=== PATIENT | male | born 2000 | race Two or more races ===

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

== ENCOUNTER 2024-10-17 10:53 | Emergency (ER) | payer MEDICAID ==
[~2024-10-17] VITALS: Ht 172.7 cm; Wt 71.5 kg
[~2024-10-17 10:53] MED LIST changes: -KETOROLAC TROMETH 30 MG/ML 1ML VIAL IM ONE
[2024-10-17] MEDS: FAMOTIDINE 20 MG TAB PO ONE (11:31)
[2024-10-17] MEDS: MAALOX PLUS or MAALOX 30 ML PO ONE (11:31)
[2024-10-17] MEDS: ONDANSETRON ODT 4 MG TAB PO ONE (11:31)
[2024-10-17 11:46] LABS: Hematocrit 45.2 % (41.0-53.0); Hemoglobin 15.9 g/dL (13.5-17.5); Mean Corpuscular Hemoglobin 30.3 pg (28.0-32.0); Mean Corpuscular Hgb Conc. 35.2 g/dL (32.0-36.0); Mean Corpuscular Volume 86.3 fL (80.0-100.0); Platelet Count (auto) 253 10^3/uL (140-450); Red Blood Cells 5.24 10^6/uL (4.5-5.90); White Blood Cell 6.5 10^3/uL (4.4-10.8)
[2024-10-17 11:55] LABS: Basophils % (manual) 0 (0.0-2.0); Blast Cells 0; Eosinophils % (manual) 0 (0-7); Metamyelocytes % 0; Myelocytes % 0; Promyelocytes % 0; Reactive Lymphocytes 0
[2024-10-17 12:03] LABS: Alanine Aminotransferase 27 U/L (7-40); Alkaline Phosphatase 79 U/L (46-116); Anion Gap 7 (5-15); Aspartate Aminotransferase 28 U/L (13-40); BUN/Creatinine Ratio 8.9 (10.0-20.0); Blood Urea Nitrogen 10 mg/dL (9-23); COVID19 ANTIGEN SOFIA FIA NEGATIVE (NEGATIVE); Calcium 9.3 mg/dL (8.7-10.4); Carbon Dioxide 27 mmol/L (20-31); Chloride 105 mmol/L (98-107); Glucose 99 mg/dL (74-106); Magnesium 2.4 mg/dL (1.6-2.6); Potassium 4.1 mmol/L (3.5-5.1); Sodium 139 mmol/L (136-145); Total Protein 7.6 g/dL (5.7-8.2)
[2024-10-17 12:04] LABS: Bilirubin, Total 0.4 mg/dL (0.2-1.0)
[2024-10-17 12:05] LABS: Rapid Influenza A Positive (Negative); Rapid Influenza B Negative (Negative)
[2024-10-17 12:13] LABS: Band Neutrophils % (manual) 3; Monocytes % (manual) 22 (0-12)
[2024-10-17 12:14] LABS: Lymphocytes % (manual) 26 (10.0-50.0); Platelet Estimate Adequate; RBC Morphology Normal
[2024-10-17 12:15] LABS: Albumin 4.9 g/dL (3.2-4.8)
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
[2024-10-17] MEDS ORDERED: OSEL75CA5 PO (12:23)
[2024-10-17] MEDS ORDERED: ONDA-180 PO (12:23)
[2024-10-17 12:42] LABS: Urine Bacteria None Seen /hpf (None Seen)
[2024-10-17 13:00] VITALS: BP 133/75; PULSE 90; RESP 16; TEMP 98; O2SAT 97
[2024-10-17 13:12] LABS: Urine Blood TRACE /uL (Negative); Urine Clarity Clear (Clear); Urine Color Yellow (Yellow); Urine Mucus FEW (None Seen); Urine Protein, UAD TRACE (Negative); Urine Specific Gravity 1.035 (1.001-1.035); Urine Squamous Epithelial Cell FEW /hpf (<5); Urine Urobilinogen Normal (Negative); Urine WBC 1 /HPF (0-3)
[2024-10-17 13:18] LABS: Amphetamine Screen, Urine Neg (NEGATIVE); Barbiturate Scree,Urine Neg (NEGATIVE); Benzodiazephine Screen, Urine Neg (NEGATIVE); Cannabinoid Screen, Urine Neg (NEGATIVE); Cocaine Screen, Urine Neg (NEGATIVE); Opiate Scree,Urine Neg (NEGATIVE); Phencyclidine Screen, Urine Neg (NEGATIVE)
[2024-10-17] MEDS ORDERED: LEVE100012 PO (17:08)
== END 2024-10-17 13:19 | disposition home or self-care (01) ==
LOC: ER 10:53
DX: J10.1 Influenza due to other identified influenza virus with other respiratory manifestations (principal); R50.9 Fever, unspecified; R05.9 Cough, unspecified; R11.2 Nausea with vomiting, unspecified; Z20.822 Contact with and (suspected) exposure to COVID-19
CPT/HCPCS: 36415; 80053; 80307; 80320; 81001; 83735; 85007; 85027; 87426; 87804; 99284; Q0162

== ENCOUNTER 2024-10-17 15:26 | Emergency (ER) | payer MEDICAID ==
[~2024-10-17] VITALS: Ht 172.7 cm; Wt 58.0 kg
[~2024-10-17 15:26] MED LIST changes: +ONDA-180 PO; +OSEL75CA5 PO
[2024-10-17 15:30] VITALS: BP 134/85; O2SAT 97
--- NOTE | 2024-10-17 15:35 | ED.PDOC ---
History of Present Illness HPI Comments 24 year old male with history of frequent breakthrough seizures / seizure disorder now BIBA after witnessed seizure at home. no report of trauma. EMS gave one dose of versed Time Seen by MD: 15:27 Primary Care Provider: HANY BELLA Allergies: Coded Allergies: NO KNOWN ALLERGIES (Unverified , 09/23/21) Home Meds Active Scripts Levetiracetam (Keppra) 1,000 Mg Tab, 1 TAB PO BID for 60 Days, #120 TAB 5 Refills Prov:TAL WINTERS MD 10/17/24 Oseltamivir Phosphate (Tamiflu) 75 Mg Cap, 1 CAP PO BID for 5 Days, #10 CAP Prov:TAL WINTERS MD 10/17/24 Ondansetron HCl (Ondansetron Hydrochloride) 8 Mg Tab, 8 MG PO Q6HP PRN for 7 Days, #28 TAB Prov:TAL WINTERS MD 10/17/24 Naproxen (NAPROSYN TABLET) 500 Mg Tb, 1 TAB PO BID, #60 TAB Prov:BONNY SILVER MD 11/03/21 Information Source: Emergency Med Personnel Mode of Arrival: EMS Severity: Severe Timing: Minutes Past Medical History PAST MEDICAL HISTORY: Seizures Surgical History: Denies all surgeries Family History Family History: Reviewed,noncontributory to illness, Family hx of HTN Social History Smoker: Non-Smoker Alcohol: Denies ETOH Use Drugs: Denies Drug Use Lives In: Home Constitutional: denies: chills, diaphoresis, fatigue, fever, malaise, sweats, weakness, others EENTM: denies: blurred vision, double vision, ear bleeding, ear discharge, ear drainage, ear pain, ear ringing, eye pain, eye redness, hearing loss, mouth pain, mouth swelling, nasal discharge, nose bleeding, nose congestion, nose pain, photophobia, tearing, throat pain, throat swelling, voice changes, others Respiratory: denies: cough, hemoptysis, orthopnea, SOB at rest, shortness of breath, SOB with excertion, stridor, wheezing, others Cardiovascular: denies: chest pain, dizzy spells, diaphoresis, Dyspnea on exertion, edema, irregular heart beat, left arm pain, lightheadedness, palpitat ions, PND, syncope, others Gastrointestinal: denies: abdomen distended, abdominal pain, blood streaked bow els, constipated, diarrhea, dysphagia, difficulty swallowing, hematemesis, melena, nausea, poor appetite, poor fluid intake, rectal bleeding, rectal pain, vomiting, others Genitourinary: denies: burning, dysuria, flank pain, frequency, hematuria, incontinence, penile discharge, penile sore, pain, testicle pain, testicle swelling, urgency, others Neurological: reports: seizure; denies: dizziness, fainting, headache, left sided numbness, left sided weakness, numbness, paresthesia, pre-existing deficit, right sided numbness, right sided weakness, speech problems, tingling, tremors, weakness, others Musculoskeletal: denies: back pain, gout, joint pain, joint swelling, muscle p ain, muscle stiffness, neck pain, others Integumetry: denies: bruises, change in color, change in hair/nails, dryness, laceration, lesions, lumps, rash, wounds, others Allergic/Immunocompromised: denies: Difficulty Healing, Frequent Infections, Hives, Itching, others Hematologic/Lymphatic: denies: anemia, blood clots, easy bleeding, easy bruising, swollen glands, others Endocrine: denies: excessive hunger, excessive sweating, excessive thirst, excessive urination, flushing, intolerance to cold, intolerance to heat, unexplained weight gain, unexplained weight loss, others Psychiatric: denies: anxiety, bipolar disorder, depression, hopeless, panic disorder, schizophrenia, sleepless, suicidal, others All Other Systems: Reviewed and Negative Physical Exam General Appearance: Moderate Distress, Normal HEENT: Other (no serious oral trauma, right forehead contusion) Neck: Full Range of Motion, Non-Tender, Normal, Normal Inspection Respiratory: Chest Non-Tender, Lungs Clear, No Accessory Muscle Use, No Respiratory Distress, Normal Breath Sounds Cardiovascular: No Edema, No JVD, No Murmur, No Gallop, Normal Peripheral Pulses, Regular Rate/Rhythm Breast Exam: Deferred Gastrointestinal: No Organomegaly, Non Tender, No Pulsatile Mass, Normal Bowel Sounds, Soft Genitalia: Deferred Pelvic: Deferred Rectal: Deferred Extremities: No calf tenderness, Normal capillary refill, Normal inspection, Normal range of motion, Non-tender, No pedal edema Musculoskeletal : Apperance: Normal Neurologic: Other (lethargic / post-ictal, arousable to loud voice) Cerebellar Function: Normal Reflexes: Normal Skin: Dry, Normal Color, Warm Lymphatic: No Adenopathy Was a procedure done? Was a procedure done?: No Differential Dx Considerations may include: Differential diagnosis includes but is not limited to: cardiac arrythmia, dehydration, sepsis, electrolyte abnormality, symptomatic anemia, hypovolemia and others X-Ray, Labs, Meds, VS Vital Signs Date Time Temp Pulse Resp B/P (MAP) Pulse Ox O2 Delivery O2 Flow Rate FiO2 10/17/24 17:14 99.1 70 24 114/70 (85) 100 99.1 10/17/24 16:10 87 10/17/24 15:51 80 22 100 Simple Mask* 12 N/A 10/17/24 15:45 99.9 76 17 134/85 (101) 96 10/17/24 15:30 134/85 (101) 97 Lab Test 10/17/24 15:37 Range/Units White Blood Count 7.3 4.4-10.8 10^3/uL Red Blood Count 5.02 4.5-5.90 10^6/uL Hemoglobin 15.0 13.5-17.5 g/dL Hematocrit 43.7 41.0-53.0 % Mean Corpuscular Volume 87.0 80.0-100.0 fL Mean Corpuscular Hemoglobin 30.0 28.0-32.0 pg Mean Corpuscular Hemoglobin Concent 34.4 32.0-36.0 g/dL Red Cell Distribution Width 13.0 11.8-14.3 % Platelet Count 240 140-450 10^3/uL Mean Platelet Volume 7.7 6.9-10.8 fL Neutrophils (%) (Auto) 64.5 37.0-80.0 % Lymphocytes (%) (Auto) 20.1 10.0-50.0 % Monocytes (%) (Auto) 14.6 H 0.0-12.0 % Eosinophils (%) (Auto) 0.3 0.0-7.0 % Basophils (%) (Auto) 0.5 0.0-2.0 % Neutrophils # (Auto) 4.7 1.6-8.6 10 ^3/uL Lymphocytes # (Auto) 1.5 0.4-5.4 10 ^3/uL Monocytes # (Auto) 1.1 0-1.3 10 ^3/uL Eosinophils # (Auto) 0 0-0.8 10 ^3/uL Basophils # (Auto) 0 0-0.2 10 ^3/uL Nucleated Red Blood Cells 0.1 % Sodium Level 138 136-145 mmol/L Potassium Level 3.8 3.5-5.1 mmol/L Chloride Level 105 98-107 mmol/L Carbon Dioxide Level 23 20-31 mmol/L Anion Gap 10 5-15 Blood Urea Nitrogen 11 9-23 mg/dL Creatinine 0.99 0.700-1.30 mg/dL Glomerular Filtration Rate Calc 110 >90 mL/min BUN/Creatinine Ratio 11.1 10.0-20.0 Serum Glucose 114 H 74-106 mg/dL Calcium Level 9.4 8.7-10.4 mg/dL Magnesium Level 2.2 1.6-2.6 mg/dL Total Bilirubin 0.4 0.2-1.0 mg/dL Aspartate Amino Transferase (AST) 27 13-40 U/L Alanine Aminotransferase (ALT) 23 7-40 U/L Alkaline Phosphatase 71 46-116 U/L Total Protein 6.9 5.7-8.2 g/dL Albumin 4.4 3.2-4.8 g/dL Plasma/Serum Blood Alcohol 4.6 <10 mg/dL Current Medications Medications (Trade) Dose Ordered Sig/Rachid Route Start Time Stop Time Status Last Admin Lorazepam (Ativan Inj) 1 mg ONCE ONCE IV 10/17/24 15:30 10/17/24 15:31 DC 10/17/24 15:36 Sodium Chloride 1,000 ml @ 500 mls/hr Q2H ONCE IVB 10/17/24 15:30 10/17/24 17:29 DC 10/17/24 15:39 Levetiracetam 100 ml @ 400 mls/hr ONCE ONCE IV 10/17/24 15:30 10/17/24 15:44 DC 10/17/24 15:[address] [address] Ph: [phone] DIAGNOSTIC IMAGING Diagnostic Imaging Report : [id number] Signed PATIENT: CORI JOHNSON ACCT: [id number] UNIT: [id number] : 2000 LOC: ER ROOM / BED: / AGE / SEX: 24 / M ADM STATUS: REG ER SERVICE 1549 ORDERING PHYSICIAN: TAL WINTERS MD PROCEDURE(s): HWOCT - HEAD WITHOUT CONTRAST REASON: head injury / headache / seizure ORDER NUMBER(s): [id number], ACCESSION NUMBER(s): [id number] EXAM: CT HEAD WITHOUT CONTRAST HISTORY: head injury / headache / seizure COMPARISON: None TECHNIQUE: Axial images of the head were obtained and reformatted in coronal and sagittal planes. All CT scans at this medical facility are performed using dose modulation techniques as appropriate to a performed exam including the following: Automated exposure control was utilized; adjustment of the MA and/or KV according to patient size; and use of iterative reconstruction technique. CT Dose: CTDI volume is 57.43 mGy. Dose-length product is 1016.89 mGy*cm FINDINGS: There is no evidence of acute intracranial hemorrhage, mass, mass effect midline shift. There is no hydrocephalus or extra-axial fluid collection. [place]-white matter differentiation is maintained. The visualized paranasal sinuses and mastoid air cells are clear. The calvarium is intact. IMPRESSION: 1. No acute intracranial process. HS:Y ATED BY: NAEEM GONZALEZ MD DICTATED DATE/TIME: 10/17/241610 SIGNED BY: NAEEM GONZALEZ MD SIGNED DATE/TIME: 10/17/241610 CC: Time of 1ST Reevaluation: 15:34 Reevaluation 1ST: Unchanged Time of 2ND Reevaluation: 17:00 Reevaluation 2ND: Improved Patient Education/Counseling: Diagnosis, Treatment Family Education/Counseling: Diagnosis, Treatment Departure 1 Departure Time of Disposition: 16:00 Impression: Primary Impression: Seizure Additional Impression: Seizure disorder Disposition: 01 HOME / SELF CARE / HOMELESS Condition: Stable e-Prescriptions Levetiracetam (Keppra) 1,000 Mg Tab 1 TAB PO BID for 60 Days, #120 TAB 5 Refills Prov: TAL WINTERS MD 10/17/24 Discharged With: Self Critical Care Note Critical Care Time?: No Stability Stability form required: No Heart Score Heart Score: Heart Score Response (Comments) Value History N/A 0 EKG N/A 0 Age N/A 0 Risk Factors N/A 0 Troponin N/A 0 Total 0 I personally scribed for TAL WINTERS MD ([email or web address]) on 10/17/24 at 17:23. Electronically submitted by Syl Sullivan ([email or web address]). TAL WINTERS MD Oct 17, 2024 15:35
[2024-10-17] MEDS: LORazepam 2MG/ML-1ML VIAL IV ONE (15:36)
[2024-10-17] MEDS: SODIUM CHLORIDE 0.9% 1,000 ML IVB ONE (15:39)
[2024-10-17] MEDS: levETIRAcetam 1000 mg/100ml 100 ML IV ONE (15:39)
[2024-10-17 15:48] LABS: Basophils # (auto) 0 10 ^3/uL (0-0.2); Basophils % (auto) 0.5 % (0.0-2.0); Eosinophils # (auto) 0 10 ^3/uL (0-0.8); Eosinophils % (auto) 0.3 % (0.0-7.0); Hematocrit 43.7 % (41.0-53.0); Lymphocytes # (auto) 1.5 10 ^3/uL (0.4-5.4); Lymphocytes % (auto) 20.1 % (10.0-50.0); Mean Corpuscular Hgb Conc. 34.4 g/dL (32.0-36.0); Monocytes # (auto) 1.1 10 ^3/uL (0-1.3); Monocytes % (auto) 14.6 % (0.0-12.0); Neutrophils # (auto) 4.7 10 ^3/uL (1.6-8.6); Neutrophils % (auto) 64.5 % (37.0-80.0); Nucleated Red Blood Cells % 0.1 %; Platelet Count (auto) 240 10^3/uL (140-450); Red Blood Cells 5.02 10^6/uL (4.5-5.90); White Blood Cell 7.3 10^3/uL (4.4-10.8)
[2024-10-17 15:51] VITALS: PULSE 80; RESP 22; O2SAT 100
[2024-10-17 16:11] LABS: Alanine Aminotransferase 23 U/L (7-40); Albumin 4.4 g/dL (3.2-4.8); Alkaline Phosphatase 71 U/L (46-116); Anion Gap 10 (5-15); Aspartate Aminotransferase 27 U/L (13-40); BUN/Creatinine Ratio 11.1 (10.0-20.0); Blood Urea Nitrogen 11 mg/dL (9-23); Calcium 9.4 mg/dL (8.7-10.4); Carbon Dioxide 23 mmol/L (20-31); Chloride 105 mmol/L (98-107); Magnesium 2.2 mg/dL (1.6-2.6); Potassium 3.8 mmol/L (3.5-5.1); Sodium 138 mmol/L (136-145)
[2024-10-17 16:12] LABS: Bilirubin, Total 0.4 mg/dL (0.2-1.0); Glucose 114 mg/dL (74-106); Total Protein 6.9 g/dL (5.7-8.2)
--- NOTE | 2024-10-17 16:14 | DVH ---
EXAM: CT HEAD WITHOUT CONTRAST HISTORY: head injury / headache / seizure COMPARISON: None TECHNIQUE: Axial images of the head were obtained and reformatted in coronal and sagittal planes. All CT scans at this medical facility are performed using dose modulation techniques as appropriate t o a performed exam including the following: Automated exposure control was utilized; adjustment of th e MA and/or KV according to patient size; and use of iterative reconstruction technique. CT Dose: CTDI volume is 57.43 mGy. Dose-length product is 1016.89 mGy*cm FINDINGS: There is no evidence of acute intracranial hemorrhage, mass, mass effect midline shift. There is no h ydrocephalus or extra-axial fluid collection. [place]-white matter differentiation is maintained. The visualized paranasal sinuses and mastoid air cells are clear. The calvarium is intact. IMPRESSION: 1. No acute intracranial process. HS:Y
[2024-10-17 16:22] LABS: Blood Alcohol 4.6 mg/dL (<10)
[2024-10-17] MEDS ORDERED: LEVE100012 PO (17:08)
[2024-10-17 17:14] VITALS: PULSE 70; RESP 24; TEMP 99.1
== END 2024-10-17 17:33 | disposition home or self-care (01) ==
LOC: ER 15:26 → EDBD 15:26 → ER 17:33
DX: G40.909 Epilepsy, unspecified, not intractable, without status epilepticus (principal); Z79.899 Other long term (current) drug therapy
CPT/HCPCS: 36415; 70450; 80053; 80320; 83735; 85025; 96365; 96375; 99285; J1953; J2060; J7030